=== PATIENT | female | born 1975 ===

== ENCOUNTER 2018-03-24 15:33 | Outpatient (REF) | payer OTHER, SELFPAY ==
[2018-03-24 21:27] LABS: Abs Immature Grans 0.07 k/cumm (0.0-0.09); Basophils % 0.1; Eosinophils % 1.3; HCT 45.9 % (36.0-46.0); HGB 15.7 g/dL (12.0-15.5); Immature Grans % 0.5; Lymphocytes % 8.9; Mean Corp. HGB Concentration 34.2 g/dL (32.0-36.0); Mean Corpuscular Hemoglobin 32.2 pg (27.0-33.0); Mean Corpuscular Volume 94.3 fL (80-95); Mean Platelet Volume 10.5 fL (8.0-11.0); Monocytes % 2.8; Neutrophils % 86.4; Platelet Count 185 x1000/uL (130-400); RBC 4.87 m/cumm (4.00-5.20); RBC Distribution Width 13.4 % (11.7-14.6); White Blood Cell Count 14.09 k/cumm (4.4-10.8)
[2018-03-24 21:28] LABS: Absolute Basophil Count 0.01 k/cumm (0.0-0.2); Absolute Eosinophil Count 0.18 k/cumm (0.0-0.7); Absolute Lymphocyte Count 1.25 k/cumm (1.2-3.4); Absolute Monocyte Count 0.39 k/cumm (0.11-0.7); Absolute Neutrophil Count 12.17 k/cumm (1.2-6.7)
[2018-03-24 21:48] LABS: ALT 23 U/L (12-78); AST 15 U/L (15-37); Albumin 4.1 g/dL (3.4-5.0); Alkaline Phosphatase 75 U/L (46-116); Anion Gap 12.4 mmol/L (3-11); BUN 14 mg/dL (7-18); Bilirubin, Total 0.5 mg/dL (0.2-1.0); C-Reactive Protein 0.44 mg/dL (0.0-0.3); CO2 24.6 mmol/L (21.0-32.0); CREATININE 0.99 mg/dL (0.55-1.02); Chloride 102 mmol/L (98-107); Glucose 102 mg/dL (70-100); Potassium 3.8 mmol/L (3.5-5.1); Sodium 139 mmol/L (136-145); Total Protein 7.5 g/dL (6.4-8.2)
[2018-03-24 22:11] LABS: ESR 5 MM/HR (0-20)
== END 2018-03-24 15:53 ==
LOC: NCHCN 15:33
PROVIDERS: PCP Family Medicine; Visit Provider Family Medicine
DX: R21 Rash and other nonspecific skin eruption (principal)
CPT/HCPCS: 80053; 85652; 85025; 86140

== ENCOUNTER 2019-10-07 16:13 | Outpatient (REF) | payer OTHER, SELFPAY ==
[2019-10-07 21:08] LABS: ALT 25 U/L (14-59); AST 17 U/L (15-37); Albumin 3.7 g/dL (3.4-5.0); Alkaline Phosphatase 96 U/L (46-116); Anion Gap 10.2 mmol/L (3-11); BUN 14 mg/dL (7-18); Bilirubin, Total 0.3 mg/dL (0.2-1.0); CO2 26.8 mmol/L (21.0-32.0); CREATININE 1.14 mg/dL (0.55-1.02); Calcium 9.2 mg/dL (8.5-10.1); Chloride 100 mmol/L (98-107); Estimated GFR 51.78 (mL/min/1.73m2); Glucose 82 mg/dL (74-106); Potassium 3.9 mmol/L (3.5-5.1); Sodium 137 mmol/L (136-145)
== END 2019-10-07 16:33 ==
LOC: NCHCN 16:13
PROVIDERS: PCP Family Medicine; Visit Provider Family Medicine
DX: I10 Essential (primary) hypertension (principal); R10.11 Right upper quadrant pain; I83.90 Asymptomatic varicose veins of unspecified lower extremity; K00.9 Disorder of tooth development, unspecified
CPT/HCPCS: 80053

== ENCOUNTER 2020-11-20 19:39 | Outpatient (REF) | payer SELFPAY ==
[2020-11-20 22:03] LABS: Anion Gap 11.1 mmol/L (3-11); BUN 9 mg/dL (7-18); CO2 25.9 mmol/L (21.0-32.0); CREATININE 0.9 mg/dL (0.55-1.02); Calcium 9.6 mg/dL (8.5-10.1); Chloride 102 mmol/L (98-107); Glucose 84 mg/dL (74-106); Potassium 3.9 mmol/L (3.5-5.1); Sodium 139 mmol/L (136-145)
== END 2020-11-20 19:40 | disposition home or self-care (01) ==
LOC: NCHCN 19:39
PROVIDERS: PCP Family Medicine; Referring Provider Family Medicine; Visit Provider Family Medicine
DX: E66.9 Obesity, unspecified (principal); I10 Essential (primary) hypertension; E88.81 Metabolic syndrome and other insulin resistance; Z86.39 Personal history of other endocrine, nutritional and metabolic disease
CPT/HCPCS: 80048

== ENCOUNTER 2022-05-23 21:09 | Outpatient (REF) | payer BC, SELFPAY ==
--- NOTE | 2022-05-23 08:50 | PAPFT_PTH ---
PATIENT: Ella Maciel LOC: [facility] U#:[id number] AGE/SX: 46/F ROOM: RE05/23/[address]: Mireille Tabor : 1975 BED: DIS: 05/23/2022 SPEC #: [id number] RECD: 05/26/22 13:00 STATUS: KONG REQ #: [id number] AASHISH: 05/23/22 08:[address]: Mireille Tabor DEPT: [facility] Cytology RECD BY: Flores Valencia ENTERED: 05/26/22 13:00 SP TYPE: PAPFT OTHR DR: Kerwin Gabriel Tissues: 1 - CX/ENDOCX FOR PAP SMEARS Procedures: PAP THIN PREP/[facility] Screening HPV DNA PROBE Comments: [id number] (CHLAMYDIA/GC)
[2022-05-23 21:45] LABS: Hemoglobin A1C 5.4 % (<5.7)
[2022-05-23 21:57] LABS: ALT 35 U/L (14-59); AST 27 U/L (15-37); Albumin 3.8 g/dL (3.4-5.0); Alkaline Phosphatase 109 U/L (46-116); Anion Gap 8.3 mmol/L (3-11); BUN 14 mg/dL (7-18); Bilirubin, Total 0.2 mg/dL (0.2-1.0); CO2 26.7 mmol/L (21.0-32.0); Calcium 9.5 mg/dL (8.5-10.1); Calculated LDL 96 mg/dL (<100); Chloride 102 mmol/L (98-107); Cholesterol 155 mg/dL (<200); Estimated GFR 70.36 (mL/min/1.73m2); Glucose 107 mg/dL (74-106); HDL Cholesterol 44 mg/dL (40-60); Potassium 3.7 mmol/L (3.5-5.1); Sodium 137 mmol/L (136-145); Total Protein 7.2 g/dL (6.4-8.2); Triglyceride 77 mg/dL (<150)
[2022-05-27 15:07] LABS: Chlamydia Result Negative (Negative); GC Result Negative (Negative)
== END 2022-05-23 21:10 | disposition home or self-care (01) ==
LOC: NCHCN 21:09
PROVIDERS: PCP Family Medicine; Visit Provider Family Medicine
DX: R63.4 Abnormal weight loss (principal); Z13.1 Encounter for screening for diabetes mellitus; E78.5 Hyperlipidemia, unspecified; Z00.00 Encounter for general adult medical examination without abnormal findings; Z12.4 Encounter for screening for malignant neoplasm of cervix; Z11.3 Encounter for screening for infections with a predominantly sexual mode of transmission; Z11.51 Encounter for screening for human papillomavirus (HPV)
CPT/HCPCS: 80053; 80061; 87491; 87591; 88142; 83036; 84443; 87624

== ENCOUNTER 2023-08-20 17:02 | Outpatient (REF) | payer BC, SELFPAY ==
[2023-08-20 20:48] LABS: Anion Gap 8.6 mmol/L (3-11); BUN 12 mg/dL (7-18); CO2 29.4 mmol/L (21.0-32.0); CREATININE 0.9 mg/dL (0.55-1.02); Calcium 9.9 mg/dL (8.5-10.1); Chloride 103 mmol/L (98-107); Estimated GFR 79.35 (mL/min/1.73m2); Glucose 98 mg/dL (74-106); Potassium 3.6 mmol/L (3.5-5.1); Sodium 141 mmol/L (136-145)
== END 2023-08-20 17:03 | disposition home or self-care (01) ==
LOC: NCHCN 17:02
PROVIDERS: PCP Family Medicine; Visit Provider Family Medicine
DX: I10 Essential (primary) hypertension (principal)
CPT/HCPCS: 80048

== ENCOUNTER 2024-11-07 16:32 | Outpatient (REF) | payer BC, SELFPAY ==
[2024-11-07 15:10] LABS: Hemoglobin A1C 5.6 % (<5.7)
[2024-11-07 15:17] LABS: Anion Gap 7.6 mmol/L (3-11); BUN 14 mg/dL (7-18); CO2 30.4 mmol/L (21.0-32.0); Calcium 9.9 mg/dL (8.5-10.1); Calculated LDL 102 mg/dL (<100); Chloride 101 mmol/L (98-107); Cholesterol 156 mg/dL (<200); Estimated GFR 78.37 (mL/min/1.73m2); Glucose 90 mg/dL (74-106); HDL Cholesterol 40 mg/dL (>or=50); Potassium 3.8 mmol/L (3.5-5.1); Sodium 139 mmol/L (136-145); Triglyceride 70 mg/dL (<150)
== END 2024-11-07 16:33 | disposition home or self-care (01) ==
LOC: NCHCN 16:32
PROVIDERS: PCP Family Medicine; Visit Provider Family Medicine
DX: I10 Essential (primary) hypertension (principal); Z13.1 Encounter for screening for diabetes mellitus; Z13.220 Encounter for screening for lipoid disorders
CPT/HCPCS: 80048; 80061; 83036